=== PATIENT | female | born 1965 | race Caucasian/White ===

== ENCOUNTER 2024-08-25 05:47 | Emergency (ER) | payer OTHER ==
[~2024-08-25] VITALS: Ht 154.9 cm; Wt 55.0 kg
[2024-08-25 05:53] VITALS: O2SAT 97
[2024-08-25] MEDS: OXYCODONE HCL/ACETAMINOPHEN 5/325MG TABLET PO ONE (06:57)
[2024-08-25] MEDS ORDERED: IBUP-2028 PO (07:27)
[2024-08-25 07:54] VITALS: BP 124/69; PULSE 80; RESP 14; TEMP 36.83628; O2SAT 100
== END 2024-08-25 08:28 | disposition home or self-care (01) ==
LOC: ER 05:47
DX: S42.301A Unspecified fracture of shaft of humerus, right arm, initial encounter for closed fracture (principal); Z79.1 Long term (current) use of non-steroidal anti-inflammatories (NSAID); W18.30XA Fall on same level, unspecified, initial encounter; Y93.89 Activity, other specified; Y92.89 Other specified places as the place of occurrence of the external cause; Y99.8 Other external cause status
CPT/HCPCS: 29105; 73060; 99283